=== PATIENT | male | born 2000 | race American Indian/Alaskan Native ===

== ENCOUNTER 2020-05-22 15:02 | Emergency (ER) | payer OTHER ==
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
[2020-05-22] MEDS ORDERED: IBUPROFEN 800 MG TAB PO ONE (15:45)
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
[2020-05-22 16:59] VITALS: BP 123/67
== END 2020-05-22 16:59 | disposition home or self-care (01) ==
LOC: ED 15:02
DX: S40.022A Contusion of left upper arm, initial encounter (principal); F17.200 Nicotine dependence, unspecified, uncomplicated; F12.10 Cannabis abuse, uncomplicated; Z98.890 Other specified postprocedural states; V49.49XA Driver injured in collision with other motor vehicles in traffic accident, initial encounter; W22.10XA Striking against or struck by unspecified automobile airbag, initial encounter; Y92.410 Unspecified street and highway as the place of occurrence of the external cause; Y99.8 Other external cause status